=== PATIENT | female | born 1955 | race Caucasian/White ===

== ENCOUNTER → 2017-10-18 | Day surgery (SDC) | payer MEDICARE, BC ==
[2017-10-16 15:20] VITALS: BMI 40.6
[~2017-10-18] MED LIST: ALBUTEROL NEB (CONC) 2.5 MG/0.5 ML INHALATION ONE; DEXAMETHASONE SOD PHOSPHATE 10 MG/ML 1 ML VIAL IV ONE; LACTATED RINGERS 1,000 ML IV ONE; LACTATED RINGERS 1,000 ML IV SCH; LIDOCAINE 1% 20 ML VIAL (10MG/ML) FOR IV START INTRADERMA ONE; LIDOCAINE 1% INJ 10MG/ML (20 ML MDV) ONE; LIDOCAINE 2% (PF) 20 MG/ML 2 ML AMP INHALATION ONE; LIDOCAINE VISCOUS 2% 15 ML CUP MUCOUS MEM ONE; MIDAZOLAM 2 MG/2 ML VIAL ONE; ONDANSETRON 4 MG/2 ML VIAL ONE; PROPOFOL 10 MG/ML 20 ML VIAL IV ONE; SUCCINYLCHOLINE CHLORIDE 100 MG/5 ML SYR IV ONE; fentaNYL (PF) 50 MCG/ML 2 ML AMP IV PRN; fentaNYL (PF) 50 MCG/ML 2 ML AMP ONE
[2017-10-18 10:56] LABS: Glucose,Whole Blood 122 mg/dL (75-99)
[2017-10-18] MEDS: MIDAZOLAM 2 MG/2 ML VIAL IV PRN ×2 (12:00→13:06)
--- NOTE | 2017-10-18 12:10 | CT ---
EXAMINATION TYPE: CT Chest johnathon Lux Protocol DATE OF EXAM: 10/18/2017 COMPARISON: None HISTORY: Pre Op scan CT DLP: 630 mGycm Automated exposure control for dose reduction was used. FINDINGS: Portion of the thyroid within the [id number] is normal. There is a three-vessel arch. Vascular kennedy cifications within the aorta. The ascending thoracic aorta at the level of the main pulmonary artery measures 3.2 cm. The main pulmonary artery at the bifurcation measures 2.0 cm. Coronary artery calcif ication is present. Enlarged mediastinal or hilar adenopathy by CT criteria is not evident on this no ncontrast study. There is a right upper lobe mass which on mediastinal windows measures 1.7 x 2.1 cm. Series [address] sections are obtained through the upper abdomen. The gallbladder is surgically absent. Faint 0.3 cm area of increased densities in the periphery of the right upper lobe. Series 6 image 24. There is stranding extending towards the peripheral margin extending from the superior posterior lat eral portion of the right upper lobe mass. Punctate density is lateral to the lung mass currently tomi sures 0.3 cm. Series 6 image 32. Some pneumonitis change may be within the lingula. There is a small density within the lateral right lung base. This measures 0.2 cm. Series 6 image 47. IMPRESSION: 1. RIGHT LUNG MASS. ADDITIONAL PUNCTATE DENSITIES DISCUSSED ABOVE. 2. EXAM PERFORMED FOR INTRAOPERATIVE GUIDANCE.
--- NOTE | 2017-10-18 13:58 | P.PCN ---
Date of Procedure: 10/18/17 Preoperative Diagnosis: RUL mass Postoperative Diagnosis: RUL mass Procedure(s) Performed: Navigational bronchoscopy, transbronchial biopsy, transbronchial brushings and transbronchial needle aspirate of a right upper lobe mass Anesthesia: PERFECTOA Surgeon: Lucio Ansari Signals Intelligence Superintendent #1: Sandrita Casillas Estimated Blood Loss (ml): 0 Pathology: other Condition: stable Disposition: same day Operative Findings: 62-year-old male patient with a right upper lobe mass, presented for a navigational bronchoscopy. Preoperative CAT scan was done and there images uploaded into the [employer] system for mapping. The Vpads were applied to the patient's chest. The right upper lobe mass was identified. Appropriate mapping was performed and the lesion was marked. All of the information was saved in a raspy thrive and was uploaded into the [employer] station. The patient was brought into the operating room. The patient was intubated in the usual fashion by a #8 orotracheal tube. Induction anesthesia was offered by SURVEY INSTRUMENT OPERATOR the bedside. After achieving adequate anesthesia, and after having the patient intubated, oxygenated and accurately ventilated, the flexible bronchoscope was introduced through the orotracheal tube and airway inspection was done. The visualized airways into the distal trachea, bilateral mainstem bronchi, right upper lobe bronchus, bronchus intermedius, right middle lobe bronchus, right lower lobe bronchus, left upper lobe bronchus, left lower lobe bronchus along with various segments and subsegments. All of these airways were patent and within normal limits. Following this, a navigational forceps was introduced and appropriate calibration was done using to a reference points which were the primary stephanie and the secondary stephanie and the right upper lobe. Following that, using navigational guidance, the flexible bronchoscope and the forceps was then directed to the right upper lobe posterior segment and on the navigational guidance the right upper lobe transbronchial biopsies were obtained. Multiple passes were taken and the lesion was biopsied with absolute accuracy as the forceps was visualized to be within the lesion, 0 mm from target. Similarly, transbronchial brushings was done using navigational guidance. At the end of the procedure chest markedly the aspirate of the right upper lobe mass was done using a 22-gauge cytology needle. No endobronchial bleeding was encountered. The bronchoscope was removed and the patient was left to anesthesia for extubation. The patient will be chest recovery. The chest x-ray will be done and if all within normal the patient can be discharged home today to be followed up with us in the office for further advice. No hemodynamic instability. No oxygenation issues during the time of the procedure.
[2017-10-18 14:16] VITALS: TEMP 97
[2017-10-18 14:23] LABS: Glucose,Whole Blood 118 mg/dL (75-99)
[2017-10-18 14:29] VITALS: RESP 16
[2017-10-18 14:40] VITALS: BP 116/80; PULSE 82
--- NOTE | 2017-10-18 15:01 | XR ---
EXAMINATION TYPE: XR chest 1V portable DATE OF EXAM: 10/18/2017 COMPARISON: Prior chest x-ray 06/22/2014, CT 10/18/2017 HISTORY: Status post right upper lobe lung biopsy TECHNIQUE: Single frontal view of the chest is obtained. FINDINGS: There is no evident pneumothorax or pleural effusion. Patient is post median sternotomy. R ight upper lobe mass is noted. Heart is enlarged and stable. IMPRESSION: No evident complication status post right upper lobe lung biopsy.
== END | disposition home or self-care (01) ==
LOC: ORWHC2ENDO 09:57
PROVIDERS: ATTEND Internal Medicine Critical Care Medicine
DX: R91.8 Other nonspecific abnormal finding of lung field (principal); J44.9 Chronic obstructive pulmonary disease, unspecified; I25.10 Atherosclerotic heart disease of native coronary artery without angina pectoris; I10 Essential (primary) hypertension; E11.9 Type 2 diabetes mellitus without complications; Z79.84 Long term (current) use of oral hypoglycemic drugs; I25.2 Old myocardial infarction; Z87.891 Personal history of nicotine dependence; Z95.1 Presence of aortocoronary bypass graft; D64.9 Anemia, unspecified; F41.9 Anxiety disorder, unspecified; Z79.82 Long term (current) use of aspirin; Z79.891 Long term (current) use of opiate analgesic; Z79.51 Long term (current) use of inhaled steroids; Z79.899 Other long term (current) drug therapy
CPT/HCPCS: 94640; 88104; 88305; 88173; 88342; 88341; 71045; 71250; 31628; 31623; 31627; J2250; J1100; J2405; J2001 ×2; J3010; J0330; J2704

== ENCOUNTER → 2017-10-26 | Outpatient (CLI) | payer MEDICARE, BC ==
--- NOTE | 2017-10-29 18:42 | PE ---
Nuclear medicine PET/CT HISTORY: Lung carcinoma, initial Patient received 18.3 mCi F-18 FDG intravenously in delayed scanning was performed from the skull bas e to the mid thighs. Localization and attenuation correction CT scan was performed. Exam is correlate d to prior CT chest 10/18/2017 Neck and chest: The right upper lobe lung mass measures approximately 2.6 cm, there is associated hyp ermetabolic uptake, SUV 10.2. Emphysematous changes are present within the lungs. Additional nodular foci described on prior CT are not well appreciated, no additional hypermetabolic uptake. No pleural or pericardial effusion. The heart is enlarged. Patient is post median sternotomy. No mediastinal, ax illary, or hilar adenopathy. Coronary artery calcifications are present. There is no cervical adenopa thy. No evidence of supraclavicular adenopathy. Abdomen pelvis: There is postcholecystectomy change. The liver is enlarged. There may be underlying h epatic steatosis. No evident adrenal mass or retroperitoneal adenopathy. No ascites. No suspicious hy permetabolic uptake. Osseous structures are remarkable for degenerative disc changes, facet arthropathy especially in the lumbar spine. Patient is post median sternotomy. No suspicious hypermetabolic uptake. IMPRESSION: Right upper lobe lung mass shows associated hypermetabolic uptake. Metastatic disease is not evident.
== END | disposition home or self-care (01) ==
LOC: RADPETMAIN 14:27
PROVIDERS: ATTEND Internal Medicine Hematology & Oncology
DX: C34.11 Malignant neoplasm of upper lobe, right bronchus or lung (principal); R91.8 Other nonspecific abnormal finding of lung field
CPT/HCPCS: 78815; A9552

== ENCOUNTER → 2018-02-06 | Outpatient (CLI) | payer MEDICARE, BC ==
--- NOTE | 2018-02-06 14:47 | CT ---
EXAMINATION TYPE: CT chest w con DATE OF EXAM: 02/06/2018 COMPARISON: PET/CT 10/26/2017 and HRCT 10/07/2017 HISTORY: 63-year-old female Follow up for lung CA TECHNIQUE: Contiguous axial scanning of the chest after the administration of 100 mL of Isovue 300. Coronal/sagittal reconstructions performed. CT DLP: 773mGycm. Automatic exposure control utilized for a dose reduction. FINDINGS: Median sternotomy wires are present with post-CABG changes. Heart normal size without pericardial eff usion. Aorta normal caliber with mild atherosclerotic arch calcifications and conventional arch vessel branc oleksandr anatomy. Scattered nonenlarged mediastinal lymph nodes. Prominent but not enlarged 9 mm right hilar lymph node is noted. No previous contrast-enhanced CT of the chest is available for comparison. Tiny 3 mm peripheral right midlung pulmonary nodule appears calcified suggesting a benign entity. 1.6 cm spiculated lesion posterior right upper lobe is smaller and less defined from the patient's pr ior exams measuring 2.2 cm on 10/07/2017 and 2.5 cm on 10/26/2017. No new pulmonary nodules or masses are seen. Strandy atelectasis or scarring at the inferior lingula. No consolidation or pleural effusion. Visualized upper abdomen shows low-attenuation of the liver suggesting hepatic steatosis. Suggestion of a 2.1 cm cyst posterior right kidney. Cholecystectomy clips. Bones: Osteopenia. No osseous destructive process seen. [id number] upper midlung predominant centrilobular emphysema. IMPRESSION: 1. Ill-defined 1.6 cm residual spiculated density posterior right upper lobe corresponds to the site of treated neoplasm. Previously measuring 2.5 cm. Follow-up as indicated. 2. A borderline sized 9 mm right hilar lymph node is nonspecific, likely reactive. 3. COPD with mild to moderate emphysema, and hepatic steatosis.
== END | disposition home or self-care (01) ==
LOC: RADCTMAIN 11:51
PROVIDERS: ATTEND Radiology Radiation Oncology
DX: J43.9 Emphysema, unspecified (principal); C34.11 Malignant neoplasm of upper lobe, right bronchus or lung; Z87.891 Personal history of nicotine dependence
CPT/HCPCS: 82565; 84520; 71260; 36415; Q9967

== ENCOUNTER 2018-03-08 11:30 | Emergency (ER) | payer MEDICARE, BC ==
[2018-03-08 11:37] VITALS: BP 155/92; PULSE 79; RESP 20; TEMP 97.3
[2018-03-08] MEDS ORDERED: ALBUTEROL NEBULIZED 2.5 MG/3 ML INHALATION STA (11:39)
[2018-03-08] MEDS ORDERED: IPRATROPIUM 0.5 MG/2.5 ML NEBU INHALATION STA (11:39)
[2018-03-08] MEDS ORDERED: SODIUM CHLORIDE 0.9% 1,000 ML IV STA (11:39)
[2018-03-08] MEDS ORDERED: methylPREDNISolone SOD SUCCI 125 MG/2 ML VIAL IV STA (11:39)
--- NOTE | 2018-03-08 11:55 | ED ---
SOB HPI - General Chief Complaint: Shortness of Breath Stated Complaint: SOB Time Seen by Provider: 03/08/18 11:39 Source: patient, RN notes reviewed, old records reviewed Mode of arrival: ambulatory Limitations: no limitations - History of Present Illness Initial Comments: This is a 63-year-old female the ER for evaluation shortness breath cough and congestion. History of COPD history of asthma. No chest pain currently. No recent fevers cough congestion no travel history no known sick contacts. No recent hospitalizations MD Complaint: shortness of breath, cough -: days(s) Radiation: other (no paon) Severity: moderate Severity scale (1-10): 5 (sob) Consistency: constant Improves With: oxygen, rest, bronchodilators Worsens With: exertion, movement, coughing Known History Of: COPD Context: recent URI Associated Symptoms: denies other symptoms - Related Data Home Medications Medication Instructions Recorded Confirmed Albuterol Inhaler [Ventolin Hfa 2 puff INHALATION RT-Q6H PRN 06/02/14 03/08/18 Inhaler] Ipratropium-Albuterol Nebulize 3 ml IH RT-Q6H PRN 06/02/14 03/08/18 [Duoneb 0.5 mg-3 mg/3 ml Soln] Aspirin EC [Ecotrin Low Dose] 81 mg PO DAILY 10/16/17 03/08/18 Calcium Polycarbophil [Fibercon] 1,250 mg PO BID 10/16/17 03/08/18 metFORMIN HCL [Glucophage] 500 mg PO BID 10/16/17 03/08/18 ALPRAZolam [Xanax] 0.25 mg PO TID 03/08/18 03/08/18 Amoxic-Pot Clav 875-125Mg 1 tab PO BID 03/08/18 03/08/18 [Augmentin 875-125] Budesonide [Pulmicort Flexhaler] 1 puff INHALATION RT-BID 03/08/18 03/08/18 Cetirizine HCl [Zyrtec] 10 mg PO DAILY 03/08/18 03/08/18 Fluticasone Nasal Herreid [Flonase 1 spray EA NOSTRIL BID 03/08/18 03/08/18 Nasal Herreid] Omeprazole 20 mg PO DAILY 03/08/18 03/08/18 guaiFENesin [Mucinex] 600 mg PO Q12HR 03/08/18 03/08/18 Previous Rx's Medication Instructions Recorded Metoprolol Tartrate [Lopressor] 12.5 mg PO TID #90 tab 06/15/14 Allergies Allergy/AdvReac Type Severity Reaction Status Date / Time No Known Allergies Allergy Verified 03/08/18 22:53 Review of Systems ROS Statement: Those systems with pertinent positive or pertinent negative responses have been documented in the HPI. ROS Other: All systems not noted in ROS Statement are negative. Past Medical History Past Medical History: Coronary Artery Disease (CAD), Cancer, Chest Pain / Angina , COPD, Diabetes Mellitus, Hypertension, Myocardial Infarction ([place]) Additional Past Medical History / Comment(s): 06/01/14 NON-STEMI. HX CERVICAL CA , AGE 29. HIATAL HERNIA. FOUND SPOT ON LUNG RECENTLY. Last Myocardial Infarction Date:: 06/01/14 History of Any Multi-Drug Resistant Organisms: None Reported Past Surgical History: Cholecystectomy, Coronary Bypass/CABG, Heart Catheterization, Hysterectomy, Orthopedic Surgery Additional Past Surgical History / Comment(s): LT Foot surgery. CABG (PIKE TO LAD. SVG TO DIAG, OM1,PDA) 2014 Past Anesthesia/Blood Transfusion Reactions: No Reported Reaction Past Psychological History: Anxiety, Depression Smoking Status: Former smoker Past Alcohol Use History: None Reported Past Drug Use History: None Reported - Past Family History Father Family Medical History: Coronary Artery Disease (CAD), Hypertension, Myocardial Infarction ([place]) Mother Family Medical History: Congestive Heart Failure (CHF), Diabetes Mellitus, Hypertension, Myocardial Infarction ([place]) Brother(s) Family Medical History: Coronary Artery Disease (CAD), Myocardial Infarction ([place] ) Sister(s) Family Medical History: Congestive Heart Failure (CHF), Diabetes Mellitus Son(s) Family Medical History: Diabetes Mellitus General Exam Limitations: no limitations General appearance: alert, in no apparent distress Head exam: Present: atraumatic, normocephalic, normal inspection Eye exam: Present: normal appearance, PERRL, EOMI. Absent: scleral icterus, conjunctival injection, periorbital swelling ENT exam: Present: normal exam, mucous membranes moist Neck exam: Present: normal inspection. Absent: tenderness, meningismus, lymphadenopathy Respiratory exam: Present: wheezes, accessory muscle use, decreased breath sounds, prolonged expiratory. Absent: respiratory distress, rales, rhonchi, stridor Cardiovascular Exam: Present: regular rate, normal rhythm, normal heart sounds. Absent: systolic murmur, diastolic murmur, rubs, gallop, clicks GI/Abdominal exam: Present: soft, normal bowel sounds. Absent: distended, tenderness, guarding, rebound, rigid Extremities exam: Present: normal inspection, full ROM, normal capillary refill. Absent: tenderness, pedal edema, joint swelling, calf tenderness Back exam: Present: normal inspection Neurological exam: Present: alert, oriented X3, CN II-XII intact Psychiatric exam: Present: normal affect, normal mood Skin exam: Present: warm, dry, intact, normal color. Absent: rash Course Vital Signs 03/08/18 11:32 Temperature 97.3 F L Pulse Rate 79 Respiratory 20 Rate Blood Pressure 155/92 O2 Sat by Pulse 92 L Oximetry Medical Decision Making - Medical Decision Making 63 female the ER for evaluation shortness of breath and COPD exacerbation. Patient states she feels fine and would like to be discharged home - Lab Data Result diagrams: 03/08/18 12:09 03/08/18 12:09 Lab Results 03/08/18 03/08/18 03/08/18 Range/Units 12:00 12:09 12:09 WBC 7.0 (3.8-10.6) k/uL RBC 4.66 (3.80-5.40) m/uL Hgb 13.6 (11.4-16.0) gm/dL Hct 42.0 (34.0-46.0) % MCV 90.1 (80.0-100.0) fL MCH 29.2 (25.0-35.0) pg MCHC 32.5 (31.0-37.0) g/dL RDW 14.5 (11.5-15.5) % Plt Count 136 L (150-450) k/uL Neutrophils % 71 % Lymphocytes % 18 % Monocytes % 7 % Eosinophils % 3 % Basophils % 0 % Neutrophils # 4.9 (1.3-7.7) k/uL Lymphocytes # 1.2 (1.0-4.8) k/uL Monocytes # 0.5 (0-1.0) k/uL Eosinophils # 0.2 (0-0.7) k/uL Basophils # 0.0 (0-0.2) k/uL Sodium 138 (137-145) mmol/L Potassium 4.3 (3.5-5.1) mmol/L Chloride 103 (98-107) mmol/L Carbon Dioxide 28 (22-30) mmol/L Anion Gap 7 mmol/L BUN 20 H (7-17) mg/dL Creatinine 0.65 (0.52-1.04) mg/dL Est GFR (CKD-EPI)AfAm >90 (>60 ml/min/1.73 sqM) Est GFR (CKD-EPI)NonAf >90 (>60 ml/min/1.73 sqM) Glucose 160 H (74-99) mg/dL Calcium 9.2 (8.4-10.2) mg/dL Phosphorus 3.9 (2.5-4.5) mg/dL Magnesium 2.0 (1.6-2.3) mg/dL Total Bilirubin 0.5 (0.2-1.3) mg/dL GGT 28 (12-43) U/L AST 19 (14-36) U/L ALT 27 (9-52) U/L Alkaline Phosphatase 88 (38-126) U/L Total Creatine Kinase (30-135) U/L CK-MB (CK-2) (0.0-2.4) ng/mL CK-MB (CK-2) Rel Index Troponin I (0.000-0.034) ng/mL NT-Pro-B Natriuret Pep 380 pg/mL Total Protein 7.0 (6.3-8.2) g/dL Albumin 3.8 (3.5-5.0) g/dL Amylase 37 (30-110) U/L Lipase 32 (23-300) U/L 03/08/18 Range/Units 12:09 WBC (3.8-10.6) k/uL RBC (3.80-5.40) m/uL Hgb (11.4-16.0) gm/dL Hct (34.0-46.0) % MCV (80.0-100.0) fL MCH (25.0-35.0) pg MCHC (31.0-37.0) g/dL RDW (11.5-15.5) % Plt Count (150-450) k/uL Neutrophils % % Lymphocytes % % Monocytes % % Eosinophils % % Basophils % % Neutrophils # (1.3-7.7) k/uL Lymphocytes # (1.0-4.8) k/uL Monocytes # (0-1.0) k/uL Eosinophils # (0-0.7) k/uL Basophils # (0-0.2) k/uL Sodium (137-145) mmol/L Potassium (3.5-5.1) mmol/L Chloride (98-107) mmol/L Carbon Dioxide (22-30) mmol/L Anion Gap mmol/L BUN (7-17) mg/dL Creatinine (0.52-1.04) mg/dL Est GFR (CKD-EPI)AfAm (>60 ml/min/1.73 sqM) Est GFR (CKD-EPI)NonAf (>60 ml/min/1.73 sqM) Glucose (74-99) mg/dL Calcium (8.4-10.2) mg/dL Phosphorus (2.5-4.5) mg/dL Magnesium (1.6-2.3) mg/dL Total Bilirubin (0.2-1.3) mg/dL GGT (12-43) U/L AST (14-36) U/L ALT (9-52) U/L Alkaline Phosphatase (38-126) U/L Total Creatine Kinase 44 (30-135) U/L CK-MB (CK-2) 1.1 (0.0-2.4) ng/mL CK-MB (CK-2) Rel Index 2.5 Troponin I <0.012 (0.000-0.034) ng/mL NT-Pro-B Natriuret Pep pg/mL Total Protein (6.3-8.2) g/dL Albumin (3.5-5.0) g/dL Amylase (30-110) U/L Lipase (23-300) U/L - EKG Data -: EKG Interpreted by Me (EKG shows sinus rhythm rate of 73, HI 1:30, QRS 80, QTC 416) - Radiology Data Radiology results: report reviewed (Chest x-rays negative for acute disease), image reviewed Disposition Clinical Impression: COPD (chronic obstructive pulmonary disease) Disposition: HOME SELF-CARE Condition: Good Is patient prescribed a controlled substance at d/c from ED?: No Referrals: Hugo Lopez, NPC [Primary Care Provider] - 1-2 days
[2018-03-08] MEDS ORDERED: AZITHROMYCIN 500 MG in SODIUM CHLORIDE 0.9% 250 ML IVPB STA (12:03)
[2018-03-08] MEDS ORDERED: AZITHROMYCIN 500 MG TAB ONE (12:13)
[2018-03-08] MEDS ORDERED: methylPREDNISolone SOD SUCCI 125 MG/2 ML VIAL ONE (12:13)
[2018-03-08] MEDS ORDERED: SODIUM CHLORIDE 0.9% 1,000 ML BAG ONE (12:13)
[2018-03-08] MEDS ORDERED: ALBUTEROL NEBULIZED 2.5 MG/3 ML INHALATION ONE (12:13)
[2018-03-08] MEDS ORDERED: IPRATROPIUM 0.5 MG/2.5 ML NEBU INHALATION ONE (12:13)
--- NOTE | 2018-03-08 21:39 | XR ---
EXAMINATION TYPE: XR chest 1V portable DATE OF EXAM: 03/08/2018 Comparison: 10/18/2017 Clinical History: 63-year-old female sob Findings: Median sternotomy wires are present. Post-CABG clips. Large patient body habitus with hazy peripheral lung densities relating to overlying soft tissue. Heart upper limits of normal in size. Hyperinflati on with diffuse interstitial densities appears relatively similar. Left base underpenetrated and not well assessed. Impression: COPD and chronic parenchymal changes. Left base is underpenetrated and not well assessed. No definite acute change seen elsewhere in the lungs.
[2018-03-09 02:54] LABS: Creatine Kinase 44 U/L (30-135); Creatine Kinase MB 1.1 ng/mL (0.0-2.4); Troponin I <0.012 ng/mL (0.000-0.034)
[2018-03-09 02:55] LABS: ALT 27 U/L (9-52); AST 19 U/L (14-36); Albumin 3.8 g/dL (3.5-5.0); Alkaline Phosphatase 88 U/L (38-126); Amylase 37 U/L (30-110); Anion Gap 7 mmol/L; Blood Urea Nitrogen 20 mg/dL (7-17); Calcium 9.2 mg/dL (8.4-10.2); Carbon Dioxide 28 mmol/L (22-30); Chloride 103 mmol/L (98-107); GGT 28 U/L (12-43); Glucose 160 mg/dL (74-99); Lipase 32 U/L (23-300); Phosphorus 3.9 mg/dL (2.5-4.5); Potassium 4.3 mmol/L (3.5-5.1); Sodium 138 mmol/L (137-145); Total Bilirubin 0.5 mg/dL (0.2-1.3)
[2018-03-09 05:38] LABS: Basophils % (A) 0 %; Eosinophils # (A) 0.2 k/uL (0-0.7); Eosinophils % (A) 3 %; HGB 13.6 gm/dL (11.4-16.0); Lymphocytes # (A) 1.2 k/uL (1.0-4.8); Lymphocytes % (A) 18 %; MCH 29.2 pg (25.0-35.0); MCHC 32.5 g/dL (31.0-37.0); MCV 90.1 fL (80.0-100.0); Mean Platelet Volume 7.4; Monocytes # (A) 0.5 k/uL (0-1.0); Monocytes % (A) 7 %; Neutrophils # (A) 4.9 k/uL (1.3-7.7); Neutrophils % (A) 71 %; Platelet Count 136 k/uL (150-450); RBC 4.66 m/uL (3.80-5.40); RDW 14.5 % (11.5-15.5)
--- NOTE | 2018-03-10 05:35 | CDI ---
Dear Billy Tejeda DO: Please do addendum Clinical Impression and Disposition. Thank you, Tika Arredondo, Acquisition Associate. If you have any questions, please contact [employer] Consultant at [phone]. mtdD
== END 2018-03-08 16:00 | disposition home or self-care (01) ==
LOC: EC 11:30
DX: J44.9 Chronic obstructive pulmonary disease, unspecified (principal); E11.9 Type 2 diabetes mellitus without complications; I25.119 Atherosclerotic heart disease of native coronary artery with unspecified angina pectoris; I25.2 Old myocardial infarction; F32.9 Major depressive disorder, single episode, unspecified; F41.9 Anxiety disorder, unspecified; Z87.891 Personal history of nicotine dependence; Z79.51 Long term (current) use of inhaled steroids; Z79.82 Long term (current) use of aspirin; Z79.84 Long term (current) use of oral hypoglycemic drugs; Z79.899 Other long term (current) drug therapy; Z85.41 Personal history of malignant neoplasm of cervix uteri; Z95.1 Presence of aortocoronary bypass graft; Z87.09 Personal history of other diseases of the respiratory system; Z90.710 Acquired absence of both cervix and uterus
CPT/HCPCS: 36415; 71045; 80053; 82150; 82550; 82553; 82977; 83690; 83735; 83880; 84100; 84484; 85025; 93005; 94640; 96374; 99285

== ENCOUNTER → 2018-08-04 | Outpatient (CLI) | payer MEDICARE, BC ==
[2018-08-04 14:20] LABS: African American GFR (CKD) >90 (>60 ml/min/1.73 sqM); Blood Urea Nitrogen 16 mg/dL (7-17)
--- NOTE | 2018-08-04 16:29 | CT ---
EXAMINATION TYPE: CT chest wo/w con DATE OF EXAM: 08/04/2018 COMPARISON: 02/06/2018 and 10/26/2017 HISTORY: 63-year-old female Malignant neoplasm of right lung. TECHNIQUE: Contiguous axial scanning of the chest before and after the administration of 100 mL of Is ovue M300. Coronal/sagittal reconstructions performed. CT DLP: 1054.8mGycm. Automatic exposure control utilized for a dose reduction. FINDINGS: Heart normal size without pericardial effusion. Median sternotomy wires are present with post-CABG ch anges. Aorta normal caliber with mild atherosclerotic arch calcifications and conventional arch vessel branc oleksandr anatomy. Nonenlarged 8 mm right tracheobronchial angle lymph node is noted. No thoracic lymphadenopathy by CT size criteria. Strandy atelectasis or scarring at the inferior lingula. There is a 7 mm superior segment left lower lobe pulmonary nodule, relatively unchanged from 8 but requiring additional follow-up. Suspected tiny 2 mm calcified granuloma peripheral right upper lobe, axial image 25 with adjacent spi culated 1.3 cm density corresponding to site of patient's treated disease. Previously, this measured 1.6 cm on 02/06/2018 and 2.5 cm on 10/26/2017. Mild centrilobular emphysema. No pleural effusion. Low-attenuation hepatic parenchyma suggesting fatty infiltration. Cholecystectomy clips are present. Redemonstrated 2.1 cm posterior right renal cyst. Adrenal glands are normal. Bones: Generalized osteopenia. No osseous destructive process seen. IMPRESSION: 1. COPD with mild emphysema. 2. Residual 1.3 cm spiculated density right upper lobe corresponding to the site of patient's treated disease. On 02/06/2018, this measured 1.6 cm and 2.5 cm on 10/26/2017. 3. 7 mm superior segment left lower lobe pulmonary nodule. This seems to be relatively similar to 10/12. Continued close follow-up recommended. 4. Hepatic steatosis.
== END | disposition home or self-care (01) ==
LOC: RADCTMAIN 13:31
PROVIDERS: ATTEND Radiology Radiation Oncology
DX: C34.11 Malignant neoplasm of upper lobe, right bronchus or lung (principal); J44.9 Chronic obstructive pulmonary disease, unspecified; R91.1 Solitary pulmonary nodule; K76.0 Fatty (change of) liver, not elsewhere classified; J98.4 Other disorders of lung; Z92.3 Personal history of irradiation; Z87.891 Personal history of nicotine dependence
CPT/HCPCS: 82565; 84520; 71270; 36415; Q9967

== ENCOUNTER → 2018-11-12 | Outpatient (CLI) | payer MEDICARE, BC ==
--- NOTE | 2018-11-13 10:18 | BD ---
EXAMINATION TYPE: Axial Bone Density DATE OF EXAM: 11/12/2018 COMPARISON: NONE CLINICAL HISTORY: retirement use of systemic steroids Height: 5'3 Weight: 244 FRAX RISK QUESTIONS: Glucocorticoids (More than 3mos): y (Ex: prednisone, prednisolone, methylprednisolone, dexamethasone, and hydrocortisone). Secondary Osteoporosis: 3. Menopause before 45: y RISK FACTORS HISTORY OF: Postmenopausal woman: y Poor Health: y MEDICATIONS: Prednisone or other steroids: y How Lon months Additional Medications: COPD, Additional History: open heart surgery 5 years ago, lung cancer , radiation 1 year, blood clots this year EXAM MEASUREMENTS: Bone mineral densitometry was performed using the [employer]. Bone mineral density as measured about the Lumbar spine is: ----- L1-L4(G/cm2): 1.254 T Score Values are as follows: ----- L2: 0.3 ----- L3: 0.6 ----- L4: 1.2 ----- L1-L4:0.6 Bone mineral density about the R hip (g/cm2): 1.002 Bone mineral density about the L hip (g/cm2):1.177 T Score values are as follows: -----R Neck: -0.3 -----L Neck: 1.0 -----R Total: 0.8 -----L Total: 1.3 IMPRESSION: Normal (Values between +1 and -1 indicate normal bone mass). Consider repeating this study in 5 year s or sooner if there is some new clinical indication. NOTE: T-SCORE=SD OF THE YOUNG ADULT MEAN.
== END | disposition home or self-care (01) ==
LOC: RADBDWWP 16:03
PROVIDERS: ATTEND Family Medicine
DX: Z79.52 Long term (current) use of systemic steroids (principal)
CPT/HCPCS: 77080

== ENCOUNTER → 2018-12-15 | Outpatient (CLI) | payer MEDICARE, BC ==
[2018-12-15 10:04] LABS: African American GFR (CKD) >90 (>60 ml/min/1.73 sqM); Blood Urea Nitrogen 17 mg/dL (7-17)
--- NOTE | 2018-12-15 11:16 | CT ---
EXAMINATION TYPE: CT chest wo/w con DATE OF EXAM: 12/15/2018 COMPARISON: 08/04/2018 HISTORY: 63-year-old female history of lung cancer, Malignant neoplasm of upper lobe TECHNIQUE: Contiguous axial scanning of the chest before and after the administration of 100 mL of Is ovue 300. Coronal/sagittal reconstructions performed. CT DLP: 1351.1mGycm. Automatic exposure control utilized for a dose reduction. FINDINGS: Heart normal size without pericardial effusion. Median sternotomy wires are present with post-CABG ch anges. Aorta normal caliber with mild atherosclerotic arch calcifications and conventional arch vessel branc oleksandr anatomy. No thoracic lymphadenopathy by CT size criteria. Ill-defined patchy density posterior right upper lobe currently measures 1.6 x 0.6 cm versus 1.5 x 0. 9 cm, relatively stable in size though with decreasing central density area punctate 3 mm satellite n odule remains unchanged dating back to 10/26/2017, axial image 24. Some increased patchy pleural parenchymal opacity just adjacent, likely posttreatment change. Subpleural nodularity posterior right midlung measures 8 mm and, possible area of nodular atelectasis which warrants short-term interval follow-up to reassess, axial image 29. Biapical pleural parenchymal scarring with mild to moderate centrilobular emphysema in the upper lung s. Low attenuation of the hepatic parenchyma suggesting fatty infiltration. Cholecystectomy clips are pr esent. 2.7 cm posterior right renal cortical cyst. Bones: No osseous destructive process. Generalized osteopenia. IMPRESSION: 1. Ill-defined focal density posterior right upper lobe currently measures 1.6 x 0.6 cm versus 1.5 x 0.9 cm on 08/04/2018. Relatively stable in size and with some decreasing central density suggesting co ntinued evolving posttreatment effect. 2. Some new adjacent patchy pleural parenchymal opacity likely development of scarring. A tiny 3 mm a djacent satellite nodule also remains stable dating back to 10/26/2017. A benign etiology is suspected . 3. Continued follow-up is recommended given a new area of 8 mm subpleural nodularity posterior right midlung. Possible area of nodular atelectasis.
== END | disposition home or self-care (01) ==
LOC: RADCTMAIN 09:26
PROVIDERS: ATTEND Radiology Radiation Oncology
DX: J98.4 Other disorders of lung (principal); R91.8 Other nonspecific abnormal finding of lung field; C34.11 Malignant neoplasm of upper lobe, right bronchus or lung; Z92.3 Personal history of irradiation; Z87.891 Personal history of nicotine dependence
CPT/HCPCS: 82565; 84520; 71270; 36415; Q9967

== ENCOUNTER → 2019-07-14 | Outpatient (CLI) | payer MEDICARE, BC ==
--- NOTE | 2019-07-14 14:30 | CT ---
EXAMINATION TYPE: CT chest wo con DATE OF EXAM: 07/14/2019 COMPARISON: 12/15/2018 HISTORY: History of lung cancer and COPD CT DLP: 627.7 mGycm, Automated exposure control for dose reduction was used. CONTRAST: Performed injected with 0 mL of Isovue 300. TECHNIQUE: Axial images were obtained at 5 mm thick sections. Reconstructed images are reviewed on [employer] computer in the coronal plane. FINDINGS: Portion of the thyroid visualized is normal. There is a 0.3 cm nodule in the periphery of the right apex. Series 4 image 9. This was present previ ously and stable. There is interval development of an area of increased density in the posterior late ral right apex. Series 4 image 20. This area measures 1.3 x 1.5 cm. This is new. An area of pleural t hickening of the posterior left upper lung field currently measures 1.0 cm along the pleural margin w hich is enlarged 0.8 cm. There is an ill-defined fullness in the right hilar region estimated at 2.5 x 2.0 cm. Series 4 image 25 There is a 1.1 cm lobular density in the posterior superior segment left lower lobe. This has enlarge d from comparison. Series 4 image 29. No enlarged mediastinal or hilar adenopathy is evident. The ascending aorta diameter at the level o f the main pulmonary artery is 3.0 cm. The main pulmonary artery diameter at the bifurcation is 2.5 cm. Coronary artery calcifications present. Limited CT sections are obtained through the upper abdomen. There is some mild fatty infiltration johnathan er. The gallbladder is been surgically resected. Pancreas is atrophic IMPRESSIONS: 1. There is increasing size nodules and densities in the right perihilar and right upper lobe periphe ry, superior segment left lower lobe. Reevaluation with PET CT is recommended.
== END | disposition home or self-care (01) ==
LOC: RADCTMAIN 13:32
PROVIDERS: ATTEND Radiology Radiation Oncology
DX: R91.8 Other nonspecific abnormal finding of lung field (principal); J98.4 Other disorders of lung; C34.11 Malignant neoplasm of upper lobe, right bronchus or lung; Z92.3 Personal history of irradiation; Z87.891 Personal history of nicotine dependence
CPT/HCPCS: 71250

== ENCOUNTER → 2019-09-18 | Outpatient (CLI) | payer MEDICARE, BC ==
--- NOTE | 2019-09-18 12:36 | CT ---
EXAMINATION TYPE: CT chest wo con DATE OF EXAM: 09/18/2019 COMPARISON: CT chest July 14, 2019 and older CTs. PET/CT October 26, 2017 HISTORY: Lung cancer progress study. CT DLP: 592.1 mGycm. Automated Exposure Control for Dose Reduction was Utilized. TECHNIQUE: CT scan of the thorax is performed without IV contrast. FINDINGS: LUNGS: Worsening posterior right upper lung peripheral masslike consolidation difficult to accurately measure axial image 24 due to anterolateral extension. This is just superior and lateral to the area of original neoplasm right suprahilar level which appears more prominent or larger measuring 3.2 x 2 .5 cm axial image 27 versus most recent prior study. Roughly 9-10 mm nodule in the superior aspect le ft lower lobe coronal image 84 is felt larger versus prior studies especially on the coronal image. M [id number] linear scarring in the lingula is stable. No new nodules or masses. There is no pleur al effusion or pneumothorax seen bilaterally. MEDIASTINUM: Post-CABG changes with mediastinal clips and sternal wires is redemonstrated. Lack of IV contrast is noted to limit evaluation for mediastinal and especially hilar adenopathy. There are no definitive new greater than 1 cm hilar or mediastinal lymph nodes. No cardiomegaly or pericardial e ffusion is seen. OTHER: Liver remains diffusely low dense consistent with diffuse fatty infiltration. No new adrenal m asses. Moderate fat replaced atrophy of pancreas redemonstrated. Osseous Structures remain deminerali zed. IMPRESSION: Local neoplastic progression right suprahilar level felt present with suspected worsening postobstructive atelectasis. More prominent superior left lower lobe nodule. No new nodules or adeno esther. Consider repeat PET/CT to confirm suspected interval progression.
== END | disposition home or self-care (01) ==
LOC: RADCTMAIN 11:13
PROVIDERS: ATTEND Radiology Radiation Oncology
DX: R91.1 Solitary pulmonary nodule (principal); D49.1 Neoplasm of unspecified behavior of respiratory system; C34.11 Malignant neoplasm of upper lobe, right bronchus or lung; Z92.3 Personal history of irradiation; Z87.891 Personal history of nicotine dependence
CPT/HCPCS: 71250

== ENCOUNTER → 2019-09-25 | Outpatient (CLI) | payer MEDICARE, BC ==
--- NOTE | 2019-09-29 06:41 | PE ---
EXAMINATION TYPE: PET CT fusion skull to thigh DATE OF EXAM: 09/25/2019 COMPARISON: Prior PET/CT October 29, 2017. Most recent CT September 18, 2019 and older CTs. HISTORY: Lung cancer progress study. Originally diagnosed right lung 2018. Treated with radiation tammi atment. TECHNIQUE: Following the intravenous administration of 11.32 mCi of F-18 FDG, whole body images are performed from the skull base to the midthigh. Images are reviewed on the computer in the coronal, a xial, and sagittal planes. Reconstructed rotating images are created on independent workstation and reviewed on the computer. A noncontrast CT is performed in conjunction with the PET scan. SCAN: Subsequent Scan FINDINGS: SKULL BASE AND NECK: No new areas of suspicious hypermetabolic uptake. CHEST, MEDIASTINUM, AND HILAR REGION: Redemonstration of irregular peripheral masslike consolidation in the posterior lateral aspect right upper lung near axial image 79 just superior to the area of braulio ginal neoplasm right suprahilar region axial image 82. Max SUV 3.21 at this level on current study. There is 9 mm nodule superior aspect left lower lobe axial image 87. SUV less than 2.5. Left hilar mild hypermetabolic uptake, max SUV 2.88 axial image 89. ABDOMEN AND PELVIS: Normal excretion. No adrenal masses. No new areas of suspicious hypermetabolic up take. OSSEOUS STRUCTURES: No new areas of suspicious hypermetabolic uptake. OTHER CT: Post CABG changes with mediastinal clips and sternal wires there is redemonstrated. Liver remains diffusely low dense consistent with fatty infiltration. Cholecystectomy clips are prese nt. Moderate fat replaced atrophy of the pancreas redemonstrated. Uterus surgically absent or markedl y atrophic. IMPRESSION: Local active recurrence right upper lung felt present as detailed above. Suspicion for de veloping left hilar adenopathy can be followed.
== END | disposition home or self-care (01) ==
LOC: RADPETMAIN 15:12
PROVIDERS: ATTEND Radiology Radiation Oncology
DX: C34.11 Malignant neoplasm of upper lobe, right bronchus or lung (principal); Z92.3 Personal history of irradiation; Z87.891 Personal history of nicotine dependence
CPT/HCPCS: 78815; A9552

== ENCOUNTER → 2020-04-15 | Outpatient (CLI) | payer MEDICARE, BC ==
--- NOTE | 2020-04-19 12:54 | PE ---
Nuclear medicine PET/CT HISTORY: C 34.81, C 34.82, lung carcinoma, subsequent Patient received 10 mCi F-18 FDG intravenously delayed scanning was performed from the skull base to the mid thighs. Localization and attenuation correction CT scan was performed. Correlation to prior nuclear medicine PET/CT dated 09/25/2019 Chest and neck: There is no cervical or supraclavicular adenopathy. The left hilar region shows a foc us of hypermetabolic uptake, SUV is more pronounced than on prior exam and now measures 6.8. Right u pper lobe shows soft tissue uptake similar to prior exam, SUV is 3.6. Post median sternotomy change, dense coronary calcifications are again seen. No pleural effusion, no pericardial effusion ABDOMEN: No evident adrenal mass. No ascites. Patient is post cholecystectomy. No retroperitoneal sidra nopathy. There is no pelvic adenopathy. Osseous structures show facet arthropathy lower lumbar spine. No suspicious uptake. Facet arthropathy in the left neck shows some mild uptake. IMPRESSION: Left hilar uptake is increased as compared to prior exam.
== END ==
LOC: RADPETMAIN 12:34
PROVIDERS: ATTEND Internal Medicine
DX: C34.81 Malignant neoplasm of overlapping sites of right bronchus and lung (principal); C34.82 Malignant neoplasm of overlapping sites of left bronchus and lung
CPT/HCPCS: 78815; A9552

== ENCOUNTER → 2020-08-08 | Outpatient (CLI) | payer MEDICARE, BC ==
[2020-08-08 11:49] LABS: African American GFR (CKD) >90 (>60 ml/min/1.73 sqM); Blood Urea Nitrogen 14 mg/dL (7-17); Non-African American GFR(CKD) >90 (>60 ml/min/1.73 sqM)
--- NOTE | 2020-08-08 15:27 | CT ---
EXAMINATION TYPE: CT chest wo/w con DATE OF EXAM: 08/08/2020 COMPARISON: PET CT 04/15/2020, 09/25/2019, and CT 07/14/2019 HISTORY: 65-year-old female C78.02 Lung ca,C34.11 neoplasm upper lobe. Radiation over one month ago. TECHNIQUE: Contiguous axial scanning of the chest before and after the administration of 100 mL of Is ovue 300. Coronal/sagittal reconstructions performed. CT DLP: 1135.4mGycm. Automatic exposure control utilized for a a dose reduction. FINDINGS: Median sternotomy wires and postoperative changes. Heart borderline enlarged without pericardial effusion. Aorta normal caliber with conventional arch vessel branching anatomy. Mild atelectatic narrowing at t he origin of the left subclavian artery. No thoracic lymphadenopathy by CT size criteria. Moderate centrilobular emphysema. More confluent consolidation extending from the right hilum back to the posterolateral pleural surfac e of the right mid lung, axial image 23. 1.0 cm left lower lobe pulmonary nodule, axial image 30 remains unchanged. Previous hypermetabolism left infrahilar region on the recent PET/CT shows borderline sized lymph nod es measuring up to 1 cm, likely decreased or stable from 04/15/2020. No pleural effusion. Low-attenuation hepatic parenchyma suggesting fatty infiltration of the liver. 3.0 cm cyst posterior right kidney. The adrenal glands are clear. Cholecystectomy clips. Bones: No osseous destructive process. IMPRESSION: 1. COPD with moderate emphysema. 2. Opacity and consolidation at the right hilum extending back to the posterolateral right mid lung p leural surface has become more confluent and larger as compared to 04/15/2020. If the patient received radiation treatment in the interval, findings could reflect post radiation therapy changes rather krystal n disease progression. Continued close surveillance is recommended. 3. Stable 1 cm left lower lobe pulmonary nodule back to at least 07/14/2019. 4. The site of previous left infrahilar hypermetabolism on 04/15/2020 currently shows a couple borderli ne sized 1 cm left infrahilar lymph nodes that should be reassessed at follow-up.
== END | disposition home or self-care (01) ==
LOC: RADCTMAIN 11:10
PROVIDERS: ATTEND Radiology Radiation Oncology
DX: C78.02 Secondary malignant neoplasm of left lung (principal); C34.11 Malignant neoplasm of upper lobe, right bronchus or lung; J43.9 Emphysema, unspecified; R91.8 Other nonspecific abnormal finding of lung field
CPT/HCPCS: 82565; 84443; 84520; 71270; 36415; Q9967